=== PATIENT | male | born 1985 | race Caucasian/White ===

== ENCOUNTER 2020-04-07 17:48 | Emergency (ER) | payer BC, OTHER ==
--- NOTE | 2020-04-07 19:35 | EDM.PDOC ---
ED HPI GENERAL MEDICAL PROBLEM - General Chief Complaint: Genitourinary Problem Stated Complaint: ABDOMINAL PAIN/ PAINFUL URINATION Time Seen by Provider: 04/07/20 18:38 Source of Information: Reports: Patient History Limitations: Reports: No Limitations - History of Present Illness INITIAL COMMENTS - FREE TEXT/NARRATIVE: Patient is a 34-year-old male who presents to the ED complaining of lower abdominal pressure, intermittent dysuria, and increased frequency of urination. States this has been going on for the past week. He was evaluated at the walk- in clinic to which they tested him for gonorrhea and chlamydia and it came back negative. He was treated with antibiotics at that time. States he felt like it got better over 1 day after receiving antibiotic but has since then returned and may be slightly worse. He denies any sensation of sitting on a hot iron. He has no scrotal or testicular tenderness. There is no abnormal penile drainage. And there is no sores to his genital region. He denies any nausea or vomiting, fever, pain to his abdomen, diarrhea, bloody or dark tarry stools. He has no history of kidney stones. He states that at night he does not get up to urinate. He states during the day he drinks a lot fluids thus he has increased frequency urination that may precipitating this. Denies any weak stream or dribbling. There is no hesitancy as well. He denies any drug use. - Related Data Allergies Allergy/AdvReac Type Severity Reaction Status Date / Time No Known Allergies Allergy Verified 04/07/20 18:00 Home Meds: Home Meds . [No Known Home Meds] 04/07/20 [History] Past Medical History - Past Health History Medical/Surgical History: Denies Medical/Surgical History Social & Family History - Tobacco Use Tobacco Use Status *Q: Current Every Day Tobacco User Years of Tobacco use: 10 Packs/Tins Daily: 0.2 - Recreational Drug Use Recreational Drug Use: No ED ROS GENERAL - Review of Systems Review Of Systems: Comprehensive ROS is negative, except as noted in HPI. ED EXAM, RENAL/ - Physical Exam Exam: See Below Exam Limited By: No Limitations General Appearance: Alert, WD/WN, No Apparent Distress Ears: Hearing Grossly Normal Throat/Mouth: Normal Voice, No Airway Compromise Head: Atraumatic, Normocephalic Neck: Normal Inspection, Supple Respiratory/Chest: No Respiratory Distress, Lungs Clear, Normal Breath Sounds, No Accessory Muscle Use Cardiovascular: Normal Peripheral Pulses, Regular Rate, Rhythm, No Murmur GI/Abdominal: Normal Bowel Sounds, Soft, Non-Tender, No Organomegaly, No Distention Back Exam: No: CVA Tenderness (L), CVA Tenderness (R) Neurological: Alert, Oriented, Normal Cognition Psychiatric: Normal Affect, Normal Mood Skin Exam: Warm, Dry, Intact, Normal Color Course - Vital Signs Last Recorded V/S: Last Vital Signs Temp 97.7 F 04/07/20 17:55 Pulse 92 04/07/20 17:55 Resp 16 04/07/20 17:55 BP 155/97 H 04/07/20 17:55 Pulse Ox - Orders/Labs/Meds Labs: Laboratory Tests 04/07/20 04/07/20 Range/Units 17:55 17:55 Urine Color Yellow Yellow (Yellow) Urine Appearance Clear Clear (Clear) Urine pH 7.5 7.5 (5.0-8.0) Ur Specific [place] 1.020 1.020 (1.005-1.030) Urine Protein Negative Negative (Negative) Urine Glucose (UA) Negative Negative (Negative) Urine Ketones Negative Negative (Negative) Urine Occult Blood Negative Negative (Negative) Urine Nitrite Negative Negative (Negative) Urine Bilirubin Negative Negative (Negative) Urine Urobilinogen 0.2 0.2 (0.2-1.0) Ur Leukocyte Esterase Negative Negative (Negative) Urine RBC 0-5 (0-5) /hpf Urine WBC Not seen (0-5) /hpf Ur Squamous Epith Cells 0-5 (0-5) /hpf Urine Bacteria Not seen (FEW) /hpf Urine Mucus Not seen (FEW) /hpf Meds: Medications Discontinued Medications Generic Name Dose Route Start Last Admin Trade Name Freq PRN Reason Stop Dose Admin Tamsulosin HCl 0.4 mg 04/07/20 19:52 04/07/20 19:55 Flomax PO 04/07/20 19:53 0.4 mg ONETIME ONE Administration - Re-Assessments/Exams Free Text/Narrative Re-Assessment/Exam: I did order urinalysis and G/C initially. G/C has been cancelled. Postvoid residual was 130 mls present. Patient does have some mild urine retention. I suspect patient has prostatitis. UA came back with no concerns for infection. Patient will be discharged with prescription for Flomax, Cipro, and doxycycline. Patient will take Cipro 500 mg twice a day for 14 days and then switch to doxycycline 100 mg twice a day for 14 days. Patient has no further question concerns and agrees with plan. Return precautions discussed with the patient. Discharge instructions as document. Departure - Departure Time of Disposition: 19:42 Disposition: Home, Self-Care 01 Condition: Good Clinical Impression: Prostatitis, Retention of urine, Microscopic hematuria - Discharge Information Instructions: Prostatitis, [id number], Acute Urinary Retention, Male, [id number] Referrals: PCP,None [Primary Care Provider] - Forms: ED Department Discharge Additional Instructions: As discussed take the flomax every night for urinary retention. For prostatitis take the Cipro 500 mg 1 tab twice a day for 14 days and then switch to doxycycline 100 mg twice a day for 14 days. Please follow-up with your primary care provider of your choosing when you return home. Beaware the Flomax can have some dizziness thus be cautious with body position changes. If you do become dizzy sit back down and allow for symptoms to resolve. Keep well- hydrated. Return to the ED if you develop any new or worsening symptoms. Sepsis Event Note (ED) - Evaluation Sepsis Screening Result: No Definite Risk - Focused Exam Vital Signs: Vital Signs Temp Pulse Resp BP 04/07/20 17:55 97.7 F 92 16 155/97 H
[2020-04-07] MEDS ORDERED: Tamsulosin 0.4 MG Cap.ER PO ONE (19:52)
== END 2020-04-07 19:56 | disposition home or self-care (01) ==
LOC: JD.ED 17:48
DX: N41.9 Inflammatory disease of prostate, unspecified (principal); R31.29 Other microscopic hematuria; R33.9 Retention of urine, unspecified; F17.210 Nicotine dependence, cigarettes, uncomplicated
CPT/HCPCS: 81001; 81003; 99283; A9270

== ENCOUNTER 2020-05-15 15:22 | Emergency (ER) | payer BC ==
[2020-05-15] MEDS ORDERED: Sodium Chloride 0.9% 1,000 ML IV STA (16:03)
[2020-05-15] MEDS: Sodium Chloride 0.9% 10 ML Syringe FLUSH PRN ×2 (16:05→16:21)
[2020-05-15] MEDS ORDERED: Iopamidol 612 MG/ML 100 ML Bottle IVPUSH ONE (16:09)
[2020-05-15] MEDS ORDERED: Iopamidol 612 MG/ML 50 ML SDV IVPUSH ONE (16:09)
--- NOTE | 2020-05-15 16:10 | EDM.PDOC ---
ED HPI GENERAL MEDICAL PROBLEM - General Chief Complaint: Genitourinary Problem Stated Complaint: LOWER ABDOMINAL PAIN Time Seen by Provider: 05/15/20 15:31 Source of Information: Reports: Patient, RN Notes Reviewed History Limitations: Reports: No Limitations - History of Present Illness INITIAL COMMENTS - FREE TEXT/NARRATIVE: Is a 34-year-old male presenting to the emergency department with complaints of pelvic pressure pain, as well as occasional dysuria and frequency of urination. Patient states symptoms have been occurring since March of last year. At that time he was diagnosed with chlamydia and treated for such. He states that after the treatment, the symptoms did improve for couple days, however they returned. He was seen in this emergency department the beginning of April and started treatment for acute prostatitis. He was on a 2-week course of Cipro followed by 2-week course of doxycycline. He states the symptoms were "held at bay "while he was on the Cipro. The doxycycline, however improved the symptoms significantly. He states by time he finished that treatment, which would have been around May 05-, the symptoms had resolved. Over the course of the next few days, the symptoms slowly returned. Patient states that he was in [place] towards the end of April and had a complete physical including prostate exam completed that time. He was told that everything was normal. He was again seen at the [facility] walk-in clinic 2 days ago and tested for gonorrhea and chlamydia. He just received a call that the results were negative. The did not complete a urinalysis. He is scheduled to see a urologist at [facility] in [place] on 19 June. He denies any fever, chills, nausea, vomiting, diarrhea, or scrotal pain/swelling. Left Lower Abdomen Pain Score (Numeric/FACES): 5 - Related Data Allergies Allergy/AdvReac Type Severity Reaction Status Date / Time No Known Allergies Allergy Verified 05/15/20 15:36 Home Meds: Home Meds Cider Vinegar [Apple Cider Vinegar] 500 mg PO DAILY 05/15/20 [History] Ibuprofen 600 mg PO DAILY PRN 05/15/20 [History] Sulfamethoxazole/Trimethoprim [Bactrim Ds Tablet] 1 each PO BID 30 Days #60 tablet 05/15/20 [Rx] traMADol [Ultram] 50 mg PO Q6H PRN #15 tablet 05/15/20 [Rx] Past Medical History - Past Health History Medical/Surgical History: Denies Medical/Surgical History Genitourinary History: Reports: Other (See Below) Other Genitourinary History: prostitis - Infectious Disease History Infectious Disease History: Reports: Chicken Pox Social & Family History - Family History Family Medical History: No Pertinent Family History - Tobacco Use Tobacco Use Status *Q: Current Every Day Tobacco User Years of Tobacco use: 15 Packs/Tins Daily: 0.1 - Caffeine Use Caffeine Use: Reports: Coffee, Energy Drinks - Recreational Drug Use Recreational Drug Use: No ED ROS GENERAL - Review of Systems Review Of Systems: See Below (Suprapubic and left lower quadrant) Constitutional: Reports: No Symptoms. Denies: Fever, Chills, Weakness HEENT: Reports: No Symptoms Respiratory: Reports: No Symptoms Cardiovascular: Reports: No Symptoms Endocrine: Reports: No Symptoms GI/Abdominal: Reports: Abdominal Pain. Denies: Diarrhea, Nausea, Vomiting : Reports: Dysuria, Frequency, Pain (pelvic pressure). Denies: Discharge, Flank Pain, Hematuria, Incontinence, Urinary Retention Musculoskeletal: Reports: No Symptoms Skin: Reports: No Symptoms Neurological: Reports: No Symptoms Psychiatric: Reports: No Symptoms Hematologic/Lymphatic: Reports: No Symptoms Immunologic: Reports: No Symptoms ED EXAM, RENAL/ - Physical Exam Exam: See Below Exam Limited By: No Limitations General Appearance: Alert, WD/WN, No Apparent Distress Respiratory/Chest: No Respiratory Distress, Lungs Clear, Normal Breath Sounds, No Accessory Muscle Use, Chest Non-Tender Cardiovascular: Normal Peripheral Pulses, Regular Rate, Rhythm, No Edema, No Gallop, No JVD, No Murmur, No Rub GI/Abdominal: Normal Bowel Sounds, Soft, No Organomegaly, No Distention, No Abnormal Bruit, No Mass, Tender (LLQ and suprapubic) (Male) Exam: Deferred (per pt request) Rectal (Males) Exam: Deferred (per pt request) Neurological: Alert, Oriented, CN II-XII Intact, Normal Cognition, Normal Gait, Normal Reflexes, No Motor/Sensory Deficits Psychiatric: Normal Affect, Normal Mood Skin Exam: Warm, Dry, Intact, Normal Color, No Rash Course - Vital Signs Last Recorded V/S: Last Vital Signs Temp 97.4 F 05/15/20 15:31 Pulse 97 05/15/20 15:31 Resp 17 05/15/20 15:31 BP 161/109 H 05/15/20 15:31 Pulse Ox 98 05/15/20 15:31 - Orders/Labs/Meds Orders: Active Orders 24 hr Category Date Time Status Peripheral IV Insertion Adult [OM.PC] Stat Oth 05/15/20 15:37 Ordered Labs: Laboratory Tests 05/15/20 05/15/20 05/15/20 Range/Units 15:45 15:48 15:48 WBC 5.12 (4.23-9.07) K/mm3 RBC 5.24 (4.63-6.08) M/mm3 Hgb 16.0 (13.7-17.5) gm/dl Hct 47.5 (40.1-51.0) % MCV 90.6 (79.0-92.2) fl MCH 30.5 (25.7-32.2) pg MCHC 33.7 (32.2-35.5) g/dl RDW Std Deviation 41.1 (35.1-43.9) fL Plt Count 261 (163-337) K/mm3 MPV 9.0 L (9.4-12.3) fl Neut % (Auto) 38.9 (34.0-67.9) % Lymph % (Auto) 41.0 (21.8-53.1) % [place] % (Auto) 12.7 H (5.3-12.2) % Eos % (Auto) 6.4 (0.8-7.0) Baso % (Auto) 1.0 (0.1-1.2) % Neut # (Auto) 1.99 (1.78-5.38) K/mm3 Lymph # (Auto) 2.10 (1.32-3.57) K/mm3 [place] # (Auto) 0.65 (0.30-0.82) K/mm3 Eos # (Auto) 0.33 (0.04-0.54) K/mm3 Baso # (Auto) 0.05 (0.01-0.08) K/mm3 Sodium 146 H (136-145) mEq/L Potassium 3.8 (3.5-5.1) mEq/L Chloride 107 (98-107) mEq/L Carbon Dioxide 28 (21-32) mEq/L Anion Gap 14.8 (5-15) BUN 19 H (7-18) mg/dL Creatinine 1.0 (0.7-1.3) mg/dL Est Cr Clr Drug Dosing 108.49 mL/min Estimated GFR (MDRD) > 60 (>60) mL/min BUN/Creatinine Ratio 19.0 H (14-18) Glucose 110 H (74-106) mg/dL Calcium 8.9 (8.5-10.1) mg/dL Total Bilirubin 0.5 (0.2-1.0) mg/dL AST 20 (15-37) U/L ALT 41 (16-63) U/L Alkaline Phosphatase 79 (46-116) U/L C-Reactive Protein < 0.2 (<1.0) mg/dL Total Protein 7.7 (6.4-8.2) g/dl Albumin 4.1 (3.4-5.0) g/dl Globulin 3.6 gm/dL Albumin/Globulin Ratio 1.1 (1-2) Prostate Specific Ag (0.1-4.0) ng/mL Urine Color Yellow (Yellow) Urine Appearance Clear (Clear) Urine pH 7.0 (5.0-8.0) Ur Specific [place] > or = 1.030 (1.005-1.030) Urine Protein Negative (Negative) Urine Glucose (UA) Negative (Negative) Urine Ketones Negative (Negative) Urine Occult Blood Negative (Negative) Urine Nitrite Negative (Negative) Urine Bilirubin Negative (Negative) Urine Urobilinogen 0.2 (0.2-1.0) Ur Leukocyte Esterase Negative (Negative) Urine RBC 0-5 (0-5) /hpf Urine WBC 0-5 (0-5) /hpf Ur Squamous Epith Cells 0-5 (0-5) /hpf Urine Bacteria Few (FEW) /hpf Urine Mucus Few (FEW) /hpf 05/15/20 Range/Units 15:48 WBC (4.23-9.07) K/mm3 RBC (4.63-6.08) M/mm3 Hgb (13.7-17.5) gm/dl Hct (40.1-51.0) % MCV (79.0-92.2) fl MCH (25.7-32.2) pg MCHC (32.2-35.5) g/dl RDW Std Deviation (35.1-43.9) fL Plt Count (163-337) K/mm3 MPV (9.4-12.3) fl Neut % (Auto) (34.0-67.9) % Lymph % (Auto) (21.8-53.1) % [place] % (Auto) (5.3-12.2) % Eos % (Auto) (0.8-7.0) Baso % (Auto) (0.1-1.2) % Neut # (Auto) (1.78-5.38) K/mm3 Lymph # (Auto) (1.32-3.57) K/mm3 [place] # (Auto) (0.30-0.82) K/mm3 Eos # (Auto) (0.04-0.54) K/mm3 Baso # (Auto) (0.01-0.08) K/mm3 Sodium (136-145) mEq/L Potassium (3.5-5.1) mEq/L Chloride (98-107) mEq/L Carbon Dioxide (21-32) mEq/L Anion Gap (5-15) BUN (7-18) mg/dL Creatinine (0.7-1.3) mg/dL Est Cr Clr Drug Dosing mL/min Estimated GFR (MDRD) (>60) mL/min BUN/Creatinine Ratio (14-18) Glucose (74-106) mg/dL Calcium (8.5-10.1) mg/dL Total Bilirubin (0.2-1.0) mg/dL AST (15-37) U/L ALT (16-63) U/L Alkaline Phosphatase (46-116) U/L C-Reactive Protein (<1.0) mg/dL Total Protein (6.4-8.2) g/dl Albumin (3.4-5.0) g/dl Globulin gm/dL Albumin/Globulin Ratio (1-2) Prostate Specific Ag 1.2 (0.1-4.0) ng/mL Urine Color (Yellow) Urine Appearance (Clear) Urine pH (5.0-8.0) Ur Specific [place] (1.005-1.030) Urine Protein (Negative) Urine Glucose (UA) (Negative) Urine Ketones (Negative) Urine Occult Blood (Negative) Urine Nitrite (Negative) Urine Bilirubin (Negative) Urine Urobilinogen (0.2-1.0) Ur Leukocyte Esterase (Negative) Urine RBC (0-5) /hpf Urine WBC (0-5) /hpf Ur Squamous Epith Cells (0-5) /hpf Urine Bacteria (FEW) /hpf Urine Mucus (FEW) /hpf Meds: Medications Discontinued Medications Generic Name Dose Route Start Last Admin Trade Name Fernyq PRN Reason Stop Dose Admin Sodium Chloride 1,000 mls @ 150 mls/hr 05/15/20 16:03 05/15/20 16:50 Normal Saline IV 05/15/20 22:42 150 mls/hr NOW STA Administration Iopamidol 100 ml 05/15/20 16:09 05/15/20 16:21 Isovue-300 (61%) IVPUSH 05/15/20 16:10 100 ml ONETIME ONE Administration Iopamidol 25 ml 05/15/20 16:09 05/15/20 16:20 Isovue-300 (61%) IVPUSH 05/15/20 16:10 25 ml ONETIME ONE Administration Sodium Chloride 10 ml 05/15/20 15:37 05/15/20 16:21 Saline Flush FLUSH 10 ml ASDIRECTED PRN Administration Keep Vein Open - Re-Assessments/Exams Free Text/Narrative Re-Assessment/Exam: Patient is a 34-year-old male presenting to the emergency department with ongoing pelvic pressure/pain as well as intermittent frequency and dysuria. He was seen in this emergency department early in April and started on a 2-week course of Cipro followed by 2-week course of doxycycline. He states his symptoms did improve by the conclusion of this treatment, however a few days later they returned. He is scheduled to see a urologist at [facility] on 19 June, however he is unsure of their name. Patient's exam is grossly unremarkable. He requested rectal exam to be deferred. States he had a prostate exam done in [place] towards the end of April and was told it was normal. I have ordered CBC, CMP, CRP, PSA, urinalysis, and a CT scan of the abdomen pelvis with IV contrast. 05/15/20 17:11 Hematology was grossly unremarkable. CRP is negative, PSA is normal at 1.2. Urinalysis is normal. CT scan shows a very minimal low-density finding within the upper left kidney most likely representing a small cyst. There is no additional abnormalities visualized on the CT. Called and [facility] He recommend starting the patient on a 1 month course of Bactrim. This should take him until his appointment with Urology on June 19. I will also send for a short prescription of Tramadol to help with the discomfort. Discharge instructions as documented. Departure - Departure Time of Disposition: 17:15 Disposition: Home, Self-Care 01 Condition: Good Clinical Impression: Chronic prostatitis without hematuria - Discharge Information *PRESCRIPTION DRUG MONITORING PROGRAM REVIEWED*: Yes *COPY OF PRESCRIPTION DRUG MONITORING REPORT IN PATIENT ESTELA: No Prescriptions: Sulfamethoxazole/Trimethoprim [Bactrim Ds Tablet] 1 each PO BID 30 Days #60 tablet traMADol [Ultram] 50 mg PO Q6H PRN #15 tablet PRN Reason: Pain Instructions: Prostatitis, [id number] Referrals: Cecile Nick MD [Ordering Only Provider] - Forms: ED Department Discharge Additional Instructions: You were seen in the emergency department today for continued pelvic pressure and discomfort as well as occasional burning with urination and frequency. Work-up included blood work, urinalysis, and a CT scan of your abdomen and pelvis. Results of your work-up were found to be normal. Your case was discussed with the [facility] Nick. He recommended putting on a 1 month course of Bactrim. Recommend continued use of Tylenol and ibuprofen as needed for discomfort. For pain not relieved by these measures, a short course of tramadol has also been prescribed. Take these medications as prescribed. Do not work or drive for 12 hours after taking the tramadol as it can be sedating. Keep your appointment as scheduled with [facility] urology in June. Return to ER for any new or worsening symptoms of concern. Sepsis Event Note (ED) - Evaluation Sepsis Screening Result: No Definite Risk - My Orders Last 24 Hours: My Active Orders 05/15/20 15:37 Peripheral IV Insertion Adult [OM.PC] Stat - Assessment/Plan Last 24 Hours: My Active Orders 05/15/20 15:37 Peripheral IV Insertion Adult [OM.PC] Stat
--- NOTE | 2020-05-15 16:46 | CT ---
CT abdomen and pelvis Technique: Multiple axial sections were obtained from above the dome of the diaphragm inferiorly through the pubic symphysis. Intravenous contrast was utilized. No oral contrast has been given. Reconstructed coronal and sagittal images were obtained. Delayed images were obtained to the pelvis. Comparison: No prior abdominal imaging is available. Findings: Visualized lung bases show nothing acute. Liver shows no focal abnormality. Spleen appears within normal limits. Adrenal glands show no nodule. Pancreas shows no discrete abnormality. Gallbladder contains no calcified gallstones. Kidneys show symmetric contrast enhancement. Left kidney shows a small low density finding within the upper pole which is too small to measure by Hounsfield units but most likely represents a small cyst measuring about 5 mm. No additional abnormality is seen within the kidneys. Aorta shows no aneurysm. No retroperitoneal adenopathy or mesenteric abnormalities are appreciated. Appendix is seen which is normal in size. No pelvic mass or adenopathy is appreciated. No free fluid or inflammatory change is appreciated. Bone window settings were reviewed which show no acute osseous finding. Delayed images show contrast within the distal ureters and within the bladder. Impression: 1. Very minimal low density finding within the upper left kidney most likely representing a small cyst. 2. No additional abnormality is appreciated on CT study of the abdomen and pelvis. Diagnostic code #2
== END 2020-05-15 17:31 | disposition home or self-care (01) ==
LOC: JD.ED 15:22
DX: N41.1 Chronic prostatitis (principal); Z72.0 Tobacco use
CPT/HCPCS: 36415; 51798; 74177; 80053; 81001; 84153; 85025; 86140; 99284; J7030; Q9967